=== PATIENT | female | born 2005 | race Caucasian/White ===

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

== ENCOUNTER 2025-01-22 07:34 | Emergency (ER) | payer MEDICAID, SELFPAY ==
[2025-01-22 07:34] VITALS: BP 127/44; PULSE 76; RESP 14; TEMP 36.2; O2SAT 98; BMI 48.6
--- NOTE | 2025-01-22 08:02 | EKG12_ITS ---
Test Reason : CP Blood Pressure : */* mmHG Vent. Rate : 72 BPM Atrial Rate : 72 BPM P-R Int : 136 ms QRS Dur : 88 ms QT Int : 390 ms P-R-T Axes : 55 74 40 degrees QTcB Int : 427 ms Sinus rhythm with marked sinus arrhythmia Otherwise normal ECG Confirmed by Stevan Toro ([id number]), film editor supervisor MARK FRANKEL ([id number]) on 01/23/2025 9:35:24 AM Referred By: Confirmed By: Stevan Toro
--- NOTE | 2025-01-22 08:03 | ED.VIS.CHEST ---
HPI History of Present Illness Chief Complaint: Chest Pain Informant: patient and parent Narrative Narrative: 27-year-old female presenting with chest discomfort on both sides. She states this started yesterday. She cannot tell me what she was doing when it started or how she noticed it, she cannot describe what it feels like, it is nonpleuritic, she can tell me nothing that makes it better or makes it worse, she just states I do not know. It was hurting into her shoulders and her upper back yesterday so she put a heating pad on those areas which did not help any of the discomfort. She denies feeling dyspneic. She denies pain or swelling in her leg. No recent travel out of the area or history of DVT or PE. She denies any recent hospitalization or surgery. Mom states she has complained about this before but she is fairly shy and does not tell her a lot about it when she does complain of it. In the past when she had visits mom gave her some ibuprofen, the patient and mother are both unclear if it helped at all. She denies any abdominal pain, nausea, vomiting. She is a non-smoker and does not use cocaine or any other substances. [facility] Medical History Anxiety Depression Home Medications ?Medication ?Instructions ?Recorded ?Last Taken ?Type hyoscyamine sulfate 0.125 mg 0.25 mg (2 x 0.125 mg) sublingual 01/22/25 Unknown Rx sublingual tablet Q6H PRN abominal discomfort #20 tabs pantoprazole 40 mg tablet,delayed 40 mg PO DAILY #30 tabs 01/22/25 Unknown Rx release Allergy/AdvReac Type Severity Reaction Status Date / Time No Known Allergies Allergy Verified 06/16/23 23:29 Surgical History Hx of adenoidectomy Hx of tympanostomy tubes Social History Smoking Status: Never smoker ROS ROS ED Constitutional Constitutional ED: Denies chills or fever(s) Eyes Eyes: Denies change in vision or diplopia ENT ENT ED: Denies rhinorrhea or sore throat Cardiovascular Cardiovascular: Reports as per HPI and chest pain; Denies leg edema, palpitations, racing heartbeat or syncope Respiratory/Chest Respiratory/Chest: Denies cough or dyspnea Gastrointestinal Gastrointestinal: Denies abdominal pain, diarrhea, nausea or vomiting Genitourinary Genitourinary ED: Denies dysuria or hematuria Musculoskeletal Musculoskeletal: Denies back pain or neck pain Integumentary Denies abscess or rash Neurologic Neurologic: Denies headache(s), paresthesias or weakness Psychiatric Psychiatric: Denies suicidal thoughts EXAM Physical Exam Const Vital Signs: 01/22/25 07:34 01/22/25 08:24 Temperature 97.1 F L Temperature Source Temporal Pulse Rate 76 Respiratory Rate 14 Blood Pressure 127/44 H Blood Pressure Mean 71 Pulse Ox 98 Oxygen Delivery Method Room Air Room Air Positive well nourished, well developed and obese General Appearance ED: well developed and NAD Nutritional Appearance: obese HEENT Reports moist mucous membranes normocephalic and atraumatic Eyes PERRL and EOMs intact bilaterally Neck full ROM and supple Resp normal respiratory effort and clear to auscultation bilaterally Cardio regular rate, regular rhythm and no murmurs Rate: Negative for bradycardia or tachycardic Peripheral Pulses: pulses 2+ throughout GI non-tender and non-distended Auscultation: normoactive bowel sounds Palpation: soft Back/Spine no CVA tenderness General Back: other FROM Extremity normal to inspection Extremity Narrative: No calf tenderness or palpable cords or asymmetry General Extremety ED: Negative for edema, pulses abnormal or tenderness General Extremity: Negative for edema or pulses abnormal Neuro oriented x3, CN's II-XII intact bilaterally and no sensory deficits noted Sensorium / Orientation: awake and alert Motor Exam: strength 5/5 throughout Psych Mood & Affect: anxious and tearful Skin no rashes or lesions noted and no wounds Heart Score History: Slightly/Non-Suspicious ECG: Normal Age: </= 45 years Risk Factors: No Risk Factors Troponin: </= Normal Limit Score: 0 MDM MDM MDM Narrative Medical decision making narrative: 2 view chest x-ray obtained on my interpretation is normal, her EKG is normal. Her PERC score is 0, ruling out pulmonary embolus without the need for further emergent testing in order to do so. Labs are normal including troponin. Meantime she was given Toradol and a GI cocktail, the latter of which really seem to make a difference. Her discomfort is completely gone but is significantly better. Given her negative workup, I discussed the possibility that this is esophageal in etiology. When asked how often she is having these pains, at this time she tells me for the first time, that she is having them every day and has been like this for months. Therefore I think it would be noticeable to the patient if she had improvement after taking pantoprazole for couple weeks, I am also giving her prescription for hyoscyamine to use as needed for pain in case this is esophageal spasm, as that and GERD are both in the differential diagnosis here. I do not think this is pleurisy or pericarditis based on her normal EKG and the fact it is nonpleuritic. Comfortable discharging her, she does not have an adult PCP yet, so I referred her to the next doctor on the unassigned list Dr. Watts. Lab Data Attestation: I reviewed the patient's lab results. Labs: Laboratory Results - last 24 hr 01/22/25 08:20 WBC 6.5 RBC 4.64 Hgb 13.8 Hct 41.5 MCV 89.4 MCH 29.7 MCHC 33.3 RDW Std Deviation 43.2 RDW Coeff of Kulwant 13.2 Plt Count 307 MPV 10.5 Immature Gran % (Auto) 0.200 Neut % (Auto) 55.5 Lymph % (Auto) 34.0 [place] % (Auto) 6.7 Eos % (Auto) 3.1 Baso % (Auto) 0.5 Absolute Neuts (auto) 3.6 Absolute Lymphs (auto) 2.19 Nucleated RBC % 0 Sodium 140 Potassium 3.8 Chloride 106 Carbon Dioxide 23.7 Anion Gap 11 BUN 7 Creatinine 0.64 L Estim Creat Clear Calc 193.02 Est GFR (MDRD) Non-Af 129 BUN/Creatinine Ratio 11.4 Glucose 106 H Calcium 9.2 Troponin T High Sens < 6 Radiography Diagnostic Testing: Clinical Impression(s) from Imaging Studies Chest X-Ray 01/22/25 08:25 IMPRESSION: No acute cardiopulmonary process Reading Location: [id number] Rhythm Strip Rhythm Strip: Sinus Rhythm Rate: 75 Ectopy: None EKG Initial EKG: Attestation: I personally reviewed and interpreted this EKG as follows: Interpretation: Sinus Rhythm and No Acute Injury Pattern Comments: Nml axis & intervals; nml EKG Discharge Plan Triage Chief Complaint: Chest Pain ED Provider: Marcin Batres Dx/Rx/DC Orders Clinical Impression: Chest pain, unspecified Instructions: ED Chest Pain, Noncardiac Prescriptions: New pantoprazole 40 mg tablet,delayed release (DR/EC) 40 mg PO DAILY Qty: 30 0RF hyoscyamine sulfate 0.125 mg tablet, sublingual 0.25 mg sublingual Q6H PRN (Reason: abominal discomfort) Qty: 20 0RF Discontinued sulfamethoxazole-trimethoprim [sulfamethoxazole-trimethoprim] 800-160 mg tablet 1 tab PO BID Qty: 6 0RF Primary Care Provider: Yue Gay NP Referrals: Nikia Joseph MD [Med Staff - [employer]] - Print Language: [place] Disposition Disposition: Home, Self Care
--- NOTE | 2025-01-22 08:25 | RAD_ITS ---
PROCEDURE: CHEST PA AND LATERAL 01/22/2025 REASON FOR EXAM: CHEST PAIN BILAT TECHNIQUE: CHEST PA AND LATERAL COMPARISON: None FINDINGS: Hardware: None Heart: Normal Mediastinum: Normal Lungs: Clear Bones: Normal RAD/Chest PA and Lateral IMPRESSION: No acute cardiopulmonary process Reading Location: [id number]
[2025-01-22] MEDS: Ketorolac 30 MG/ML Syringe IV (08:36)
[2025-01-22] MEDS: Lidocaine 2% Viscous15 ML UDC 15 ML PO (08:36)
[2025-01-22 08:40] LABS: Hematocrit 41.5 % (37-47); Hemoglobin 13.8 g/dL (12.0-15.0); Immature Granulocytes Count 0.010 X10^3/uL (0.0-0.0); Mean Corp Hgb Conc 33.3 g/dL (32-36); Mean Corpuscular Volume 89.4 fL (81-99); Mean Platelet Vol. 10.5 fl (6.2-12.0); NRBC Flagged by Analyzer 0 % (0-5); Platelet Count 307 K/mm3 (150-450); RBC Distribution Width CV 13.2 % (11.6-14.6); RBC Distribution Width SD 43.2 fl (35.1-43.9); Red Blood Count 4.64 M/mm3 (4.2-5.4); White Blood Count 6.5 K/mm3 (4.4-11.0)
[2025-01-22 09:13] LABS: Anion Gap 11 (5-15); BUN 7 mg/dL (4-19); BUN/Creat Ratio 11.4 RATIO (10-20); Calcium,Total 9.2 mg/dL (7.6-11.0); Carbon Dioxide 23.7 mmol/L (21.0-32.0); Chloride 106 mmol/L (98-108); Estimated Creatinine Clearance 193.02 ml/min (50-250); Glucose 106 mg/dL (70-99); Potassium 3.8 mmol/L (3.3-5.1); Troponin T High Sensitivity < 6 ng/L (<=14)
[2025-01-22 09:45] VITALS: BP 112/70; PULSE 56; RESP 16; TEMP 36.3; O2SAT 100
== END 2025-01-22 09:46 | disposition home or self-care (01) ==
PROVIDERS: Emergency Provider Emergency Medicine; PCP Registered Nurse; Visit Provider Emergency Medicine
DX: R07.9 Chest pain, unspecified (principal); K21.9 Gastro-esophageal reflux disease without esophagitis
CPT/HCPCS: 71046; 80048; 84484; 85025; 93005; 96374; 99284; A4216